=== PATIENT | male | born 1990 | race Caucasian/White ===

== ENCOUNTER 2017-04-16 10:00 | Emergency (ER) | payer BC ==
[2017-04-16] MEDS ORDERED: Albuterol/Ipratropium 3.0-0.5 MG/3 ML Neb Soln NEB ONE (10:12)
[2017-04-16] MEDS ORDERED: methylPREDNISolone Sodium Succinate 125 MG/2 ML SDV IM ONE (10:13)
--- NOTE | 2017-04-16 10:13 | EDM.PDOC ---
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 PMHx DVT on Xarelto Onset Date: 04/13/17 Onset Time: 09:00 Duration: Day(s): Location: Reports: Chest Severity: Moderate Improves with: Reports: Rest Worsens with: Reports: Movement Context: Reports: Other (Possible Grain Dust) Associated Symptoms: Reports: Cough, Shortness of Breath Middle Back Pain Score (Numeric/FACES): 3 - Related Data Allergies Allergy/AdvReac Type Severity Reaction Status Date / Time No Known Allergies Allergy Verified 04/16/17 10:06 Home Meds: Home Meds Rivaroxaban [Xarelto] 20 gm PO DAILY 04/16/17 [History] Social & Family History - Tobacco Use Smoking Status *Q: Never Smoker - Recreational Drug Use Recreational Drug Use: No ED ROS GENERAL - Review of Systems Review Of Systems: See Below Constitutional: Reports: No Symptoms HEENT: Reports: No Symptoms Respiratory: Reports: Shortness of Breath, Cough Cardiovascular: Reports: No Symptoms Endocrine: Reports: No Symptoms GI/Abdominal: Reports: No Symptoms : Reports: No Symptoms Musculoskeletal: Reports: No Symptoms Skin: Reports: No Symptoms Neurological: Reports: No Symptoms Psychiatric: Reports: No Symptoms Hematologic/Lymphatic: Reports: No Symptoms Immunologic: Reports: No Symptoms ED EXAM, GENERAL - Physical Exam Exam: See Below Exam Limited By: No Limitations General Appearance: Alert, WD/WN, No Apparent Distress Eye Exam: Bilateral Eye: PERRL Ears: Normal External Exam Nose: Normal Inspection Throat/Mouth: Normal Inspection, Normal Lips Head: Atraumatic, Normocephalic Neck: Normal Inspection, Supple Respiratory/Chest: No Respiratory Distress, Decreased Breath Sounds Cardiovascular: Normal Peripheral Pulses, Regular Rate, Rhythm GI/Abdominal: Normal Bowel Sounds Back Exam: Normal Inspection Extremities: Normal Inspection, Normal Range of Motion Neurological: Alert, Oriented, CN II-XII Intact Psychiatric: Normal Affect Skin Exam: Warm, Dry Lymphatic: No Adenopathy Course - Vital Signs Last Recorded V/S: Last Vital Signs Temp 36.3 C 04/16/17 10:04 Pulse 108 H 04/16/17 10:04 Resp 18 04/16/17 10:04 BP 129/72 04/16/17 10:04 Pulse Ox 94 L 04/16/17 10:04 - Orders/Labs/Meds Orders: Active Orders 24 hr Category Date Time Status RT Aerosol Therapy [RC] ASDIRECTED Care 04/16/17 10:12 Active Labs: Laboratory Tests 04/16/17 Range/Units 10:12 WBC 8.2 (5.0-10.0) 10^3/uL RBC 5.65 (4.6-6.2) 10^6/uL Hgb 16.2 (14.0-18.0) g/dL Hct 45.6 (40.0-54.0) % MCV 80.7 (80-100) fL MCH 28.7 (27.0-34.0) pg MCHC 35.5 H (33.0-35.0) g/dL Plt Count 133 L (150-450) 10^3/uL Neut % (Auto) 61.2 (42.2-75.2) % Lymph % (Auto) 23.2 (20.5-50.1) % Liberty % (Auto) 9.4 H (2-8) % Eos % (Auto) 5.8 H (1.0-3.0) % Baso % (Auto) 0.4 (0.0-1.0) % Meds: Medications Discontinued Medications Generic Name Dose Route Start Last Admin Trade Name Freq PRN Reason Stop Dose Admin Albuterol/Ipratropium 3 ml 04/16/17 10:12 04/16/17 10:22 Duoneb 3.0-0.5 Mg/3 Ml NEB 04/16/17 10:13 3 ml ONETIME ONE Administration Methylprednisolone Sodium Succinate 125 mg 04/16/17 10:13 04/16/17 10:20 Solu-Medrol IM 04/16/17 10:14 125 mg ONETIME ONE Administration Departure - Departure Time of Disposition: 10:47 Disposition: Home, Self-Care 01 Condition: Good (bronchitis) Clinical Impression: Bronchitis due to fumes or vapors, acute - Discharge Information Forms: ED Department Discharge Additional Instructions: Wear respiratory protection when harvesting Increase intake Water / Juice Use medications prescribed: PRO AIR HFA MDI take 2 puffs Q 4 hours as needed MEDROL DOSE PACK 4mg use as directed MUCINEX 600mg take 1 BID # 30 F/U w/ PCP - My Orders Last 24 Hours: My Active Orders 04/16/17 10:12 RT Aerosol Therapy [RC] ASDIRECTED - Assessment/Plan Last 24 Hours: My Active Orders 04/16/17 10:12 RT Aerosol Therapy [RC] ASDIRECTED
== END 2017-04-16 11:04 | disposition home or self-care (01) ==
LOC: DL.ED 10:00
DX: T59.91XA Toxic effect of unspecified gases, fumes and vapors, accidental (unintentional), initial encounter (principal); J68.0 Bronchitis and pneumonitis due to chemicals, gases, fumes and vapors; Z79.899 Other long term (current) drug therapy
CPT/HCPCS: 36415; 71020; 85025; 94640; 99285; J2930